=== PATIENT | male | born 2000 | race Caucasian/White ===

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

== ENCOUNTER 2020-03-24 16:07 | Emergency (ER) | payer OTHER ==
[~2020-03-24] VITALS: Ht 177.8 cm; Wt 75.3 kg
[~2020-03-24 16:07] MED LIST changes: +LORATIDINE 10 M10 M1 PO; +PROMETHAZINE V473 ML PO; +TESSALON PERLE100 MG PO
[2020-03-24] MEDS ORDERED: NORCO 5-325 TA1 EAC2 PO (16:47)
[2020-03-24 17:03] VITALS: BP 122/66
== END 2020-03-24 17:04 | disposition home or self-care (01) ==
LOC: M.ERS 16:07
DX: T23.201A Burn of second degree of right hand, unspecified site, initial encounter (principal); T31.0 Burns involving less than 10% of body surface; X12.XXXA Contact with other hot fluids, initial encounter; Y93.89 Activity, other specified; Y92.89 Other specified places as the place of occurrence of the external cause; Y99.8 Other external cause status

== ENCOUNTER 2020-11-23 14:45 | Emergency (ER) | payer OTHER ==
[~2020-11-23] VITALS: Ht 167.6 cm; Wt 75.3 kg
[~2020-11-23 14:45] MED LIST changes: +NORCO 5-325 TA1 EAC2 PO
[2020-11-23] MEDS ORDERED: SELENIUM SULFI120 ML TOP (15:20)
[2020-11-23 15:35] VITALS: BP 113/67
== END 2020-11-23 15:36 | disposition home or self-care (01) ==
LOC: M.ERS 14:45
DX: N50.89 Other specified disorders of the male genital organs (principal); Z11.3 Encounter for screening for infections with a predominantly sexual mode of transmission